=== PATIENT | male | born 1975 | race Caucasian/White ===

== ENCOUNTER 2018-10-01 08:50 | Emergency (ER) | payer SELFPAY ==
[2018-10-01] MEDS: ONDANSETRON (ODT) 4 MG TAB ODT (09:18)
[2018-10-01] MEDS: CEFAZOLIN 1 GM INJ IM (09:18)
[2018-10-01] MEDS: HYDROCODONE/APAP (5/325) TAB PO (09:18)
[2018-10-01] MEDS: LIDOCAINE 1% (MDV) 20 ML INJ SC (09:19)
[2018-10-01] MEDS: DIPHTH/TET/ACEL PERTUSS (ADULT) 0.5 ML VIAL IM* (09:19)
== END 2018-10-01 11:39 | disposition home or self-care (01) ==
LOC: FTE 08:50
DX: S61.215A Laceration without foreign body of left ring finger without damage to nail, initial encounter (principal); W23.1XXA Caught, crushed, jammed, or pinched between stationary objects, initial encounter; Y92.69 Other specified industrial and construction area as the place of occurrence of the external cause; Z23 Encounter for immunization
CPT/HCPCS: 12001; 73140; 90471; 90715; 96372; 99284-25